=== PATIENT | female | born 1955 | race Caucasian/White ===

== ENCOUNTER → 2016-12-24 | Outpatient (CLI) | payer OTHER | LOC: FIMAGING 10:44 | PROVIDERS: ATTEND Nurse Practitioner | DX: Z12.31 Encounter for screening mammogram for malignant neoplasm of breast (principal) | CPT/HCPCS: G0202 ==

== ENCOUNTER → 2017-06-28 | Outpatient (CLI) | payer OTHER | LOC: CIMAGING 11:58 | PROVIDERS: ATTEND Nurse Practitioner | DX: R91.8 Other nonspecific abnormal finding of lung field (principal); Z87.891 Personal history of nicotine dependence | CPT/HCPCS: 71046-PO ==

== ENCOUNTER → 2017-07-11 | Outpatient (CLI) | payer OTHER ==
[~2017-07-11] MED LIST: IOPAMIDOL (ISOVUE-300) 100 ML BTL ONE
== END ==
LOC: FIMAGING 10:16
PROVIDERS: ATTEND Nurse Practitioner
DX: Z12.2 Encounter for screening for malignant neoplasm of respiratory organs (principal); Z87.891 Personal history of nicotine dependence
CPT/HCPCS: Q9967

== ENCOUNTER → 2017-08-22 | Outpatient (CLI) | payer OTHER | LOC: FIMAGING 11:09 | PROVIDERS: ATTEND Physical Medicine & Rehabilitation | DX: M50.81 Other cervical disc disorders, high cervical region (principal); M48.02 Spinal stenosis, cervical region; M51.84 Other intervertebral disc disorders, thoracic region ==

== ENCOUNTER 2017-12-24 11:05 | Emergency (ER) | payer OTHER ==
--- NOTE | 2017-12-24 12:30 | EDPHY ---
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 She is complaining of lateral malleolus pain. No fall from height. No paresthesia. Unable to bear weight. [ PHYSICAL EXAM (Prior to examination, patient consented to physical exam, hands were washed and my usual and customary physical exam procedures followed) 1) GENERAL: Well-developed, well-nourished, alert and oriented.. 2) HEAD: Normocephalic 3) HEENT: Pupils equal, round, reactive to light bilaterally. 4) LUNGS: Breathing comfortably. 5) MUSCULOSKELETAL: Tender to palpation lateral malleolus. proximal tibia and fibula nontender .5th MT nontender negative Nails test, compartments soft 6) SKIN: Intact 7) VASCULAR: DP,PT pulses and cap refill present and brisk DIFFERENTIAL DIAGNOSIS: in no particular order including but not limited to fracture, sprain, compartment syndrome * Procedure: Crutches indications for crutch use discussed with patient. Patient fitted for crutches by ER staff. Observed ambulating with crutches. I think the patient has the capacity to safely use crutches. Usual and customary crutch walking precautions provided Procedure: Splint A garth boot splint was applied by ER nursery technician. After application of the splint I returned and re-examined the patient. The splint was adequately immobilizing the joint and distal to the splint the patient's circulation and sensation were intact. Patient shows no signs of compartment syndrome. Was given orthopedic precautions. Smoking Status: Former smoker Constitutional: Initial Vital Signs Temperature (C) 36.6 C 12/24/17 11:09 Heart Rate 72 12/24/17 11:09 Respiratory Rate 18 12/24/17 11:09 O2 Sat (%) 92 12/24/17 11:09 O2 Delivery Mode Room Air Allergies/Adverse Reactions: Tetanus Toxoid,Fl *RETIRED-02/07/12 [Tetanus Toxoid,Fluid] Adverse Reaction ( Intermediate, Verified 12/24/17 11:08) Other-Enter Comments Home Medications: Medication Instructions Recorded Levothyroxine 02/02/14 Norvasc 02/02/14 Colchicine 12/24/17 Indomethacin 12/24/17 Lipitor 12/24/17 MDM/Departure - MDM Imaging Results: Imaging Impressions Ankle X-Ray 12/24/17 11:12 Impression: Nothing acute identified. Images reviewed by myself ED Course/Re-evaluation: No evidence of compartment syndrome. Soft compartments. Neurovascular intact. Recommend follow up with Orthopedics. I saw this patient independently based on established practice protocols. Care of patient under supervision of secondary supervising physician Dr Jovita Church. - Depart Disposition: Home, Routine, Self-Care Clinical Impression: Left ankle sprain Qualifiers: Encounter type: initial encounter Involved ligament of ankle: unspecified ligament Qualified Code(s): S93.402A - Sprain of unspecified ligament of left ankle, initial encounter Condition: Good Instructions: Ankle Sprain (ED) Additional Instructions: Return to the ER immediately if you experience discoloration, have worsening pain, numbness, tingling, or any other symptoms that concern you. If you received x-rays in the emergency department today, be advised, that ligamentous , tendon, muscular, and other non-bony injury cannot be fully ruled out. Try to keep your affected extremity elevated above the level of your chest, and keep cold packs on the affected area, for the next 48 hours. Adult Pain & Fever Control: We recommend Acetaminophen (Tylenol) and Ibuprofen (Motrin,Advil) for pain and fever control. When fever is high or pain severe, both drugs can be used at the same time, but at different intervals. Please note the time differences. Your dose is: Acetaminophen 650mg every 4 to 6 hours Ibuprofen 600mg every 6 hours with food OR Note: do not take Acetaminophen with Hydrocodone (Vicodin, Lortab) or Oycodone (Percocet). These medications also contain Acetaminophen. No more than 3000mg of Acetaminophen should be taken in 24 hours (for an adult). Referrals: Devin Dominguez MD [Medical Doctor] - 2-3 days, call for appt.
[2017-12-24 12:46] VITALS: BP 143/85
== END 2017-12-24 12:48 | disposition home or self-care (01) ==
DX: S93.402A Sprain of unspecified ligament of left ankle, initial encounter (principal); Z87.891 Personal history of nicotine dependence; X50.9XXA Other and unspecified overexertion or strenuous movements or postures, initial encounter; Y92.239 Unspecified place in hospital as the place of occurrence of the external cause; Y99.0 Civilian activity done for income or pay; Y93.89 Activity, other specified
CPT/HCPCS: L4386

== ENCOUNTER 2018-06-01 05:41 | Day surgery (SDC) | payer OTHER ==
[2018-06-01] MEDS ORDERED: LR 1,000 ML IV ONE (05:50)
[2018-06-01] MEDS ORDERED: LIDOCAINE 1% 2 ML INJ ID PRN (05:50)
[2018-06-01] MEDS ORDERED: LIDOCAINE 1% 300 MG/30 ML SDV ONE (06:41)
[2018-06-01] MEDS ORDERED: BUPIVACAINE 0.5% 30 ML SDV ONE (06:41)
[2018-06-01] MEDS ORDERED: ceFAZolin 2 GM/DEXTROSE 100 ML IV ONE (06:48)
--- NOTE | 2018-06-01 06:51 | SOAPPROG ---
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 MAIN OFFICE Provider DEVIN RODRIGUES M.D. Insurance Med Primary: ZANDRA Insurance # : [id number] Policy/Group # : [id number] Prescription: DSTPS - Member is eligible. details None recorded. Patient's Pharmacies [facility] #[id number] ([facility]): [address] [facility] [id number], Ph , Vitals None recorded. Allergies Allergies not reviewed (last reviewed 06/15/2017) TETANUS VACCINES AND TOXOID: Fever (Mild) Reviewed Medications amLODIPine 06/15/17 entered [facility] amLODIPine 5 mg tablet 04/03/18 filled [facility] atorvastatin 20 mg tablet 05/03/18 filled [facility] betamethasone acetate and sodium phos 6 mg/mL suspension for injection Take 0.7 mL by injection route. 04/06/18 administered Devin Rodrigues M.D. chlorhexidine gluconate 0.12 % mouthwash 05/04/18 filled [facility] cholecalciferol (vitamin D3) 1,000 unit capsule 06/15/17 entered [facility] cyclobenzaprine 10 mg tablet 08/15/17 filled [facility] dexamethasone 0.5 mg/5 mL oral elixir 05/04/18 filled [facility] diclofenac 1 % topical gel APPLY 2 GRAM TO THE AFFECTED AREA(S) BY TOPICAL ROUTE 4 TIMES PER DAY 05/29/18 prescribed Devin Rodrigues M.D. diclofenac sodium 75 mg tablet,delayed release 11/06/17 filled [facility] gabapentin 300 mg capsule 10/26/17 filled [facility] levothyroxine 06/15/17 entered [facility] Salced[facility] levothyroxine 50 mcg tablet 04/04/18 filled [facility] methylPREDNISolone 4 mg tablets in a dose pack 08/24/17 filled [facility] [place] 3-6-9 06/15/17 entered [facility] Slacedo sertraline 25 mg tablet 04/03/18 filled [facility] None recorded. Problems Reviewed Problems No known problems * Acquired trigger finger - Onset: 11/02/2017 Family History Family History not reviewed (last reviewed 06/15/2017) Mother - Arthritis - Diabetes mellitus - Hypertensive disorder Father - Heart disease - Hypertensive disorder Brother - Arthritis - Diabetes mellitus - Heart disease - Malignant neoplastic disease - Disorder of back Social History not reviewed (last reviewed 06/15/2017) Smoking Status: Former smoker Occupation: Registered nurses Employer: [employer] Alcohol intake: Occasional Alcohol-years of use: 30 Caffeine intake: Moderate Exercise level: Occasional Hand Dominance: Left Education: 2 Year College Live alone or with others?: alone Surgical History Surgical History not reviewed (last reviewed 06/15/2017) DIETITIAN CHIEF History (not configured) Obstetric History None recorded. Past Pregnancies None recorded. Past Medical History Past Medical History not reviewed (last reviewed 06/15/2017) Depression: Y Gout: Y Hypertension: Y Migraines: Y Thyroid Problems: Y Screening None recorded. HPI This is a very pleasant 62 year old LHD female with: -left ring > left small finger trigger finger - 06/15/17 -- left ring finger flexor sheath injection - 11/02/17 -- repeat left ring finger flexor sheath injection - 02/24/18 -- repeat left ring finger flexor sheath injection -- now with recurrence of symptoms - insidious onset of a right dorsoradial long finger MCPJ mass She presents today for repeat evaluation of her left ring finger due to recurrence of symptoms. ROS ROS as noted in the HPI Physical Exam Patient is a 62-year-old female. Bilateral finger examination Inspection/palpation: Right: 2mm x 3mm mass overlying the dorsoradial aspect of the right long finger MCPJ Left: TTP overlying the left ring A1 alberta Finger ROM Index MCP: 0-80 / 0-80 / 0-80 PIP: 0-105 / 0-105 / 0-105 DIP: 0-75 / 0-75 / 0-75 Long MCP: 0-90 / 0-90 / 0-90 PIP: 0-105 / 0-105 / 0-105 DIP: 0-75 / 0-75 / 0-75 Ring MCP: 0-95 / 0-95 / 0-95 PIP: 0-105 / 0-105 / 0-105 DIP: 0-75 / 0-75 / 0-75 Small MCP: 0-100 / 0-100 / 0-100 PIP: 0-105 / 0-105 / 0-105 DIP: 0-75 / 0-75 / 0-75 Finger motor and sensory Index FDS: + / + / + FDP: + / + / + EDC: + / + / + RDN: + / + / + UDN: + / + / + Long FDS: + / + / + FDP: + / + / + EDC: + / + / + RDN: + / + / + UDN: + / + / + Ring FDS: + / + / + FDP: + / + / + EDC: + / + / + RDN: + / + / + UDN: + / + / + Small FDS: + / + / + FDP: + / + / + EDC: + / + / + RDN: + / + / + UDN: + / + / + Trigger finger testing (R / L /Normal) Thumb: - / - / - Index: - / - / - Long: - / - / - Ring: - / + / - Small: - / - / - Dupuytrens cords (R / L / Normal) Thumb: - / - / - Index: - / - / - Long: - / - / - Ring: - / - / - Small: - / - / - Assessment / Plan This is a very pleasant 62 year old LHD female with: -left ring > left small finger trigger finger - 06/15/17 -- left ring finger flexor sheath injection - 11/02/17 -- repeat left ring finger flexor sheath injection - 02/24/18 -- repeat left ring finger flexor sheath injection -- now with recurrence of symptoms - insidious onset of a right long finger dorsoradial MCPJ mass -- s/s c/w a possible ganglion cyst For the left ring finger: - I have discussed with the patient the risks, benefits, alternatives and complications associated with both non-operative (specifically, observation, NSAIDs, PT/HEP, injection) and operative (specifically, left ring finger trigger finger release) forms of treatment - The patient fully understands the risks, benefits, alternatives, and complications associated with these forms of treatment and wishes to proceed with operative intervention as outlined above - She has signed the informed consent form for surgery and surgery will be scheduled for the near future. For the right long finger: - I have discussed with the patient the risks, benefits, alternatives and complications associated with both non-operative (specifically, observation, advanced imaging) and operative (specifically, right long finger dorsal MCPJ mass excisional biopsy) forms of treatment - The patient fully understands the risks, benefits, alternatives, and complications associated with these forms of treatment and wishes to continue observation - FU as above 1. Acquired trigger finger M65.342: Trigger finger, left ring finger * TRIGGER FINGER: CARE INSTRUCTIONS 2. Pain in finger of right hand M79.644: Pain in right finger(s) * XR, HAND Ordering provider to read?: Y Possibility of ?: N Provide films to patient: N Shielded?: N Side: RIGHT Views (X-RAY, HAND): PA, Lateral & Oblique Ordering provider to read?: Y, Possibility of ?: N, Provide films to patient: N, Shielded?: N, Side: RIGHT, Views (X-RAY, HAND): PA, Lateral & Oblique Right hand joint spaces are well-maintained, no evidence of bony abnormality. Return to Office * Devin Rodrigues M.D. for Post op 15 at MAIN OFFICE on 06/14/2018 at 10:30 AM Encounter Sign-Off Encounter signed-off by Devin Rodrigues M.D., 05/30/2018. 06/01/18 06:50 Objective: Vital Signs Temp Pulse Resp BP Pulse Ox 36.6 C 56 L 14 120/79 93 06/01/18 06:29 06/01/18 06:29 06/01/18 06:29 06/01/18 06:29 06/01/18 06:29 ICD10 Worksheet Patient Problems: Problems Problem Status Onset Trigger finger, left ring finger Acute - ICD10 Problem Qualifiers (1) Trigger finger, left ring finger
--- NOTE | 2018-06-01 06:52 | PDHPUP ---
History & Physical Update H&P update statement: This history and physical update is based on an assessment of the patient which was completed after admission or registration (within 24 hours), but prior to the surgery/procedure. H&P update: H&P reviewed & patient examined, no change in patient's condition since H&P completed
[2018-06-01] MEDS ORDERED: MIDAZOLAM 2 MG/2 ML VIAL IVP ONE (06:56)
--- NOTE | 2018-06-01 06:56 | PDANEPAE ---
ANE History of Present Illness Left ring finger, here for trigger finger release ANE Past Medical History - Cardiovascular History Hx Hypertension: Yes Hx Arrhythmias: No Hx Chest Pain: No Hx Coronary Artery / Peripheral Vascular Disease: No Hx CHF / Valvular Disease: No Hx Palpitations: No - Pulmonary History Hx COPD: No Hx Asthma/Reactive Airway Disease: No Hx Recent Upper Respiratory Infection: No Hx Oxygen in Use at Home: No Hx Sleep Apnea: No Sleep Apnea Screening Result - Last Documented: Positive Pulmonary History Comment: DEYSI triggers - Neurologic History Hx Cerebrovascular Accident: No Hx Seizures: No Hx Dementia: No - Endocrine History Hx Diabetes: No - Renal History Hx Renal Disorders: No Renal History Comment: hx kidney stone lithotripsy 20 yrs ago - Liver History Hx Hepatic Disorders: No - Neurological & Psychiatric Hx Hx Neurological and Psychiatric Disorders: Yes Neurological / Psychiatric History Comment: minor depression/anxiety - Cancer History Hx Cancer: No - Congenital Disorder History Hx Congenital Disorders: No - GI History Hx Gastrointestinal Disorders: Yes Gastrointestinal History Comment: nausea, something stuck at base of esophagus - Other Health History Other Health History: crown. [place] - Chronic Pain History Chronic Pain: No - Surgical History Prior Surgeries: none in last 5 yrs ANE Review of Systems Review of Systems: - Exercise capacity METS (RN): 4 METS ANE Patient History - Allergies Allergies/Adverse Reactions: Tetanus Toxoid,Fl *RETIRED-02/07/12 [Tetanus Toxoid,Fluid] Allergy (Intermediate , Verified 06/01/18 05:57) Other-Enter Comments - Home Medications Home Medications: Levothyroxine 02/02/14 [Last Taken 05/31/18 09:30] Norvasc 02/02/14 [Last Taken 05/31/18 14:00] Colchicine 12/24/17 [Last Taken Unknown] Indomethacin 12/24/17 [Last Taken 1 Year Ago ~06/01/17] Lipitor 12/24/17 [Last Taken 05/31/18 20:30] Sertraline HCl 05/25/18 [Last Taken 05/31/18 14:00] - NPO status NPO Since - Liquids (Date): 05/31/18 NPO Since - Liquids (Time): 23:45 NPO Since - Solids (Date): 05/31/18 NPO Since - Solids (Time): 20:00 - Smoking Hx Smoking Status: Former smoker - Family Anes Hx Family Hx Anesthesia Complications: none ANE Labs/Vital Signs - Vital Signs Blood Pressure: 120/79 Heart Rate: 56 Respiratory Rate: 14 O2 Sat (%): 93 Height: 162.56 cm Weight: 90.718 kg ANE Physical Exam - Airway Neck exam: FROM Mallampati Score: Class 2 Mouth exam: normal dental/mouth exam - Pulmonary Pulmonary: no respiratory distress, no rales or rhonchi - Cardiovascular Cardiovascular: regular rate and rhythym, no murmur, rub, or gallop - ASA Status ASA Status: II ANE Anesthesia Plan Anesthesia Plan: GA with mask Total IV Anesthesia: Yes
[2018-06-01] MEDS ORDERED: fentaNYL 100 MCG/2 ML INJ ONE (06:59)
[2018-06-01] MEDS ORDERED: PROPOFOL/EMULSION 500 MG/50 ML BOTTLE IV ONE (06:59)
[2018-06-01] MEDS ORDERED: DEXAMETHASONE 4 MG/ML VIAL IVP PRN (07:28)
[2018-06-01] MEDS ORDERED: ACETAMINOPHEN 500 MG TAB PO PRN (07:28)
[2018-06-01] MEDS ORDERED: MEPERIDINE 25 MG/0.5 ML AMP IVP PRN (07:28)
[2018-06-01] MEDS ORDERED: NALOXONE HCL 0.4 MG/ML INJ IVP PRN (07:28)
[2018-06-01] MEDS ORDERED: ONDANSETRON 4 MG/2 ML VIAL IVP PRN (07:28)
[2018-06-01] MEDS ORDERED: oxyCODONE IR 5 MG TAB PO PRN (07:28)
[2018-06-01] MEDS ORDERED: fentaNYL 100 MCG/2 ML INJ IVP PRN (07:28)
[2018-06-01 09:28] VITALS: BP 135/82
[2018-06-01] MEDS ORDERED: PROPOFOL 200 MG/20 ML VIAL ONE (09:28)
[2018-06-01] MEDS ORDERED: ACETAMINOPHEN 500 MG TAB ONE (09:34)
--- NOTE | 2018-06-01 09:55 | POSTANESTH ---
Post Anesthetic Evaluation Cardiovascular Status: Normal, Stable Respiratory Status: Normal, Stable, Similar to Pre-op Cond. Level of Consciousness/Mental Status: Can Participate in Eval, Alert and Oriented Pain Control: Adequate, Prn Tx Ordered Nausea/Vomiting Control: Adequate, Prn Tx Ordered Complications Possibly Related to Anesthesia: None Noted
--- NOTE | 2018-06-03 18:29 | GOP ---
DATE OF OPERATION: 06/01/2018 SURGEON: Devin Vu MD [employer] RAFTING GUIDE: Ellen Cano PA-C PREOPERATIVE DIAGNOSIS: Left ring finger trigger finger. POSTOPERATIVE DIAGNOSIS: Left ring finger trigger finger. PROCEDURE PERFORMED: Left ring finger trigger finger release. FINDINGS: ESTIMATED BLOOD LOSS: 0.2 cc. DESCRIPTION OF PROCEDURE: This is a very pleasant 62-year-old female who underwent a left ring finge r trigger finger release. COMPLICATIONS: None. IMPLANTS: None. TOURNIQUET TIME: 11 minutes at 250 mmHg. /[id number]/MODL
== END 2018-06-01 09:48 | disposition home or self-care (01) ==
LOC: FSGY 05:41
PROVIDERS: ATTEND Orthopaedic Surgery Hand Surgery
PROC: 0LN80ZZ Release Left Hand Tendon, Open Approach (ICD-10-PCS; principal; 2018-06-01 07:15)
DX: M65.342 Trigger finger, left ring finger (principal); F32.9 Major depressive disorder, single episode, unspecified; I10 Essential (primary) hypertension; M10.9 Gout, unspecified; G43.909 Migraine, unspecified, not intractable, without status migrainosus; E07.9 Disorder of thyroid, unspecified
CPT/HCPCS: J0690; J2250; J2704; J3010

== ENCOUNTER 2018-10-14 16:15 | Emergency (ER) | payer OTHER ==
[2018-10-14] MEDS ORDERED: NS 1,000 ML IV ONE (16:57)
[2018-10-14] MEDS ORDERED: fentaNYL 100 MCG/2 ML INJ IVP ONE (16:57)
[2018-10-14] MEDS ORDERED: ONDANSETRON 4 MG/2 ML VIAL IVP ONE (16:57)
--- NOTE | 2018-10-14 16:57 | EDPHY ---
H & P Time Seen by Provider: 10/14/18 16:26 HPI/ROS: CHIEF COMPLAINT: Left flank pain HISTORY OF PRESENT ILLNESS: The patient is a 62-year-old female who presents emergency department left flank pain. 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 She took 600 mg of ibuprofen. Her symptoms worsened. She had an episode of nausea with no vomiting. She subsequently had a bowel movement. Her pain has persisted. She states that slightly improved when she is laying down on the bed. She has had a previous kidney stone in approximately 1999. She states her previous no was 1.5 cm and required lithotripsy. She denies any fevers or chills. No dysuria frequency. No recent trauma. No chest pain or shortness of breath. No abdominal pain. REVIEW OF SYSTEMS: 10 systems were reveiwed and are negative with the exception of the elements mentioned in the history of present illness. Past Medical/Surgical History: Previous kidney stone Smoking Status: Former smoker Physical Exam: Vitals noted GENERAL: Well-appearing, in no acute distress, alert. HEENT: Eyes normal to inspection, normal pharynx, no signs of dehydration. NECK: Normal, supple. RESPIRATORY: Clear to auscultation bilaterally, no rales, rhonchi or wheezing. CVS: Regular rate and rhythm, no rubs, murmurs, or gallops. ABDOMEN: Soft, nontender, nondistended, no organomegaly. BACK: Normal to inspection, no CVA tenderness. SKIN: Normal color, no rash, warm, dry. No pallor. EXTREMITIES: No pedal edema, no calf tenderness, no Homans sign or cords, no joint swelling. NEURO/PSYCH: Alert and oriented, normal mood and affect, normal motor sensory exam. Constitutional: Initial Vital Signs Temperature (C) 36.7 C 10/14/18 16:21 Heart Rate 72 10/14/18 16:21 Respiratory Rate 26 H 10/14/18 16:21 Blood Pressure 165/98 H 10/14/18 16:21 O2 Sat (%) 99 10/14/18 16:21 O2 Delivery Mode Room Air Allergies/Adverse Reactions: Tetanus Toxoid,Fl *RETIRED-02/07/12 [Tetanus Toxoid,Fluid] Allergy (Intermediate , Verified 06/01/18 05:57) Other-Enter Comments Home Medications: Medication Instructions Recorded Levothyroxine 02/02/14 Norvasc 02/02/14 Colchicine 12/24/17 Indomethacin 12/24/17 Lipitor 12/24/17 Sertraline HCl 05/25/18 Ibuprofen 600 mg PO Q6 #15 tablet 10/14/18 Metformin HCl 10/14/18 Ondansetron Odt [Zofran Odt 4 mg 4 mg PO Q4PRN PRN #7 tab 10/14/18 (*)] Tamsulosin HCl [Flomax] 0.4 mg PO DAILY #4 cap 10/14/18 oxyCODONE/APAP 5/325 [Percocet 1 - 2 tab PO Q4PRN PRN #11 tab 10/14/18 5/325 (*)] Medical Decision Making - Diagnostics Imaging Results: Imaging Impressions Abdomen/Pelvis CT 10/14/18 16:57 Impression: 1. 6-mm stone in the proximal left ureter with mild obstructive uropathy. 2. Punctate left renal stone. 3. Borderline enlarged fatty liver. 4. Additional findings, as above. Findings discussed with Rae Cox MD on October 14, 2018 at 5:29 p.m. Attention: This CT examination is specifically designed to evaluate patients who are clinically suspected of having acute obstructive uropathy. This examination does not use radiographic contrast and provides only a limited evaluation of the abdomen, pelvis, and retroperitoneum. If there is further clinical suspicion for pathological conditions other than obstructive uropathy, a complete CT evaluation of the abdomen and pelvis utilizing intravenous and enteric contrast should be considered. ED Course/Re-evaluation: The in the emergency department I discussed possible etiologies with the patient. I answered all her questions. IV was placed. Laboratory studies were obtained. The patient was given fentanyl 100 mcg IV and Zofran 4 mg IV. She took ibuprofen previously. The CT scan was ordered. Patient's white count is elevated at 12.3. Chemistry panel is notable for a low potassium of 3.2. Creatinine is normal. UA shows positive red cells. CT of the abdomen pelvis: Please refer the dictated report by Dr. Pickard. The patient has a left ureteral stone measuring 6 mm. I discussed the results with the patient. I answered all her questions. Patient states she is feeling much better. Her abdominal exam is soft, nontender nondistended. She feels comfortable being discharged home. She understands risks of discharge versus admission. She was given Flomax 0.4 mg orally. The patient was given warnings prior to leaving. She will return with worsening symptoms. She was given a prescription for Percocet, Zofran, ibuprofen and Flomax. Differential Diagnosis: My differential includes but is not limited to kidney stone, urinary tract infection, pyelonephritis, pneumothorax, small-bowel obstruction, perforation - Data Points Laboratory Results: Laboratory Results 10/14/18 16:30 10/14/18 16:30 10/14/18 10/14/18 10/14/18 17:00 16:30 16:30 WBC 12.36 10^3/uL H 10^3/uL (3.80-9.50) RBC 5.07 10^6/uL 10^6/uL (4.18-5.33) Hgb 15.0 g/dL g/dL (12.6-16.3) Hct 42.2 % % (38.0-47.0) MCV 83.2 fL fL (81.5-99.8) MCH 29.6 pg pg (27.9-34.1) MCHC 35.5 g/dL g/dL (32.4-36.7) RDW 12.9 % % (11.5-15.2) Plt Count 291 10^3/uL 10^3/uL (150-400) MPV 10.5 fL fL (8.7-11.7) Neut % (Auto) 45.5 % % (39.3-74.2) Lymph % (Auto) 43.1 % % (15.0-45.0) [place] % (Auto) 7.9 % % (4.5-13.0) Eos % (Auto) 2.7 % % (0.6-7.6) Baso % (Auto) 0.6 % % (0.3-1.7) Nucleat RBC Rel Count 0.0 % % (0.0-0.2) Absolute Neuts (auto) 5.62 10^3/uL 10^3/uL (1.70-6.50) Absolute Lymphs (auto) 5.33 10^3/uL H 10^3/uL (1.00-3.00) Absolute Monos (auto) 0.98 10^3/uL H 10^3/uL (0.30-0.80) Absolute Eos (auto) 0.33 10^3/uL 10^3/uL (0.03-0.40) Absolute Basos (auto) 0.07 10^3/uL 10^3/uL (0.02-0.10) Absolute Nucleated RBC 0.00 10^3/uL 10^3/uL (0-0.01) Immature Gran % 0.2 % % (0.0-1.1) Immature Gran # 0.02 10^3/uL 10^3/uL (0.00-0.10) RBC/WBC/PLT Morphology TNP Platelet Estimate TNP Sodium 140 mEq/L mEq/L (135-145) Potassium 3.2 mEq/L L mEq/L (3.5-5.2) Chloride 106 mEq/L mEq/L (97-110) Carbon Dioxide 21 mEq/l L mEq/l (22-31) Anion Gap 13 mEq/L mEq/L (6-14) BUN 16 mg/dL mg/dL (7-23) Creatinine 0.9 mg/dL mg/dL (0.6-1.0) Estimated GFR > 60 Glucose 155 mg/dL H mg/dL (70-100) Calcium 10.3 mg/dL mg/dL (8.5-10.4) Urine Color YELLOW Urine Appearance HAZY Urine pH 7.0 (5.0-7.5) Ur Specific [place] 1.011 (1.002-1.030) Urine Protein NEGATIVE (NEGATIVE) Urine Ketones TRACE H (NEGATIVE) Urine Blood 2+ H (NEGATIVE) Urine Nitrate NEGATIVE (NEGATIVE) Urine Bilirubin NEGATIVE (NEGATIVE) Urine Urobilinogen NEGATIVE EU EU (0.2-1.0) Ur Leukocyte Esterase NEGATIVE (NEGATIVE) Urine RBC 50-182 /hpf H /hpf (0-3) Urine WBC 0-1 /hpf /hpf (0-3) Ur Epithelial Cells TRACE /lpf /lpf (NONE-1+) Amorphous Sediment PRESENT /hpf /hpf (NONE-1+) Urine Mucus 1+ /lpf /lpf (NONE-1+) Urine Glucose NEGATIVE (NEGATIVE) Medications Given: Discontinued Medications Fentanyl (Sublimaze) 100 mcg IVP EDNOW ONE Stop: 05/18/19 16:58 Last Admin: 10/14/18 17:15 Dose: 100 mcg Sodium Chloride (Ns) 1,000 mls @ 0 mls/hr IV EDNOW ONE; Wide Open PRN Reason: Protocol Stop: 10/14/18 16:58 Last Admin: 10/14/18 17:14 Dose: 1,000 mls Ondansetron HCl (Zofran) 4 mg IVP EDNOW ONE Stop: 10/14/18 16:58 Last Admin: 10/14/18 17:15 Dose: 4 mg Departure - Departure Disposition: Home, Routine, Self-Care Clinical Impression: Flank pain, Ureteral stone Condition: Good Instructions: Kidney Stones (ED) Additional Instructions: Return with increasing pain, inability urinate, fever, chills or any other concerns. Referrals: Bi Bonilla MD [Medical Doctor] - 2-3 days without fail Prescriptions: Ibuprofen 600 mg PO Q6 #15 tablet Ondansetron Odt [Zofran Odt 4 mg (*)] 4 mg PO Q4PRN PRN #7 tab PRN Reason: For Nausea & Vomiting oxyCODONE/APAP 5/325 [Percocet 5/325 (*)] 1 - 2 tab PO Q4PRN PRN #11 tab PRN Reason: For Moderate To Severe Pain Tamsulosin HCl [Flomax] 0.4 mg PO DAILY #4 cap
[2018-10-14 17:21] LABS: PLATELET COUNT 291 10^3/uL (150-400)
[2018-10-14] MEDS ORDERED: POTASSIUM CL 20 MEQ/15 ML UDCUP PO ONE (18:11)
[2018-10-14] MEDS ORDERED: TAMSULOSIN HCL 0.4 MG CAP PO ONE (18:12)
[2018-10-14 18:26] VITALS: BP 155/70
== END 2018-10-14 18:40 | disposition home or self-care (01) ==
DX: N20.2 Calculus of kidney with calculus of ureter (principal); N13.9 Obstructive and reflux uropathy, unspecified; K76.0 Fatty (change of) liver, not elsewhere classified; E86.9 Volume depletion, unspecified; Z87.891 Personal history of nicotine dependence
CPT/HCPCS: 96374; J2405; J3010

== ENCOUNTER 2018-10-19 12:24 | Day surgery (SDC) | payer OTHER ==
--- NOTE | 2018-10-18 18:27 | GHP ---
[f rep st] PREOP HISTORY AND PHYSICAL ADMISSION DIAGNOSIS: Left proximal ureteral calculus. 62-year-old lady who had a ureteral calculus and pain on the left side. CAT scan revealed a 7 mm stone, and her associated features related to this are bloating and nausea. She is admitted as an outpatient for the above procedure. PAST HISTORY: Positive for depression, diabetes, hypertension, hypercholesterolemia. ALLERGIES: Tetanus toxoid and lisinopril. MEDICATIONS: Include oxycodone, amlodipine, atorvastatin, levothyroxine, sertraline, metformin, Norvasc. PAST SURGICAL HISTORY: ACL lithotripsy and trigger finger release. FAMILY HISTORY: Father and brother had kidney stones. No malignancy. SOCIAL HISTORY: Former smoker. Rare alcohol consumption. She is . REVIEW OF SYSTEMS: Negative cardiac, respiratory, endocrine. PHYSICAL EXAM: VITAL SIGNS: In the office, she had a blood pressure 120/82, pulse 76 and regular, respirations 16, O2 sat on room air 95%. GENERAL: Oriented x3. HEAD, EARS, EYES, NOSE, AND THROAT: Normal. ABDOMEN: Normal, with no rebound or guarding. LOWER EXTREMITIES: Normal. At the present time, she is admitted for left ureteroscopy and stone retrieval. /[id number]/MODL MTDD
--- NOTE | 2018-10-19 10:42 | POSTOPPROG ---
Post Op Note Date of Operation: 10/19/18 (dictated) Surgeon: Sven Alexander Anesthesiologist: Omid Anesthesia: GET(General Endotracheal) Pre-op Diagnosis: left ureterolitihiasis Procedure: Ureteroscopy, stent, fluoroscopy, renal stone rx Inf/Abcess present in the surg proc area at time of surgery?: No EBL: Minimal Drains: Other (stent)
[2018-10-19] MEDS ORDERED: LIDOCAINE 2% JELLY 20 ML (UROJECT) ONE ×2 (12:43→12:49)
[2018-10-19] MEDS ORDERED: IOPAMIDOL (ISOVUE-M 300) 15 ML VIAL ONE ×2 (12:44→12:51)
[2018-10-19] MEDS ORDERED: ceFAZolin 2 GM/DEXTROSE 100 ML IV ONE (12:52)
[2018-10-19] MEDS ORDERED: LR 1,000 ML IV ONE (12:57)
--- NOTE | 2018-10-19 13:19 | PDANEPAE ---
ANE History of Present Illness L ureteroscopy for stone plus stent placement ANE Past Medical History - Cardiovascular History Hx Hypertension: Yes Hx Arrhythmias: No Hx Chest Pain: No Hx Coronary Artery / Peripheral Vascular Disease: No Hx CHF / Valvular Disease: No Hx Palpitations: No - Pulmonary History Hx COPD: No Hx Asthma/Reactive Airway Disease: No Hx Recent Upper Respiratory Infection: No Hx Oxygen in Use at Home: No Hx Sleep Apnea: No Sleep Apnea Screening Result - Last Documented: Positive Pulmonary History Comment: DEYSI triggers - Neurologic History Hx Cerebrovascular Accident: No Hx Seizures: No Hx Dementia: No - Endocrine History Hx Diabetes: Yes Endocrine History Comment: metformin - Renal History Hx Renal Disorders: No Renal History Comment: hx kidney stone lithotripsy 20 yrs ago - Liver History Hx Hepatic Disorders: No - Neurological & Psychiatric Hx Hx Neurological and Psychiatric Disorders: Yes Neurological / Psychiatric History Comment: minor depression/anxiety. 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 small hiatal hernia - Other Health History Other Health History: crown. menap[place] - Chronic Pain History Chronic Pain: No - Surgical History Prior Surgeries: none in last 5 yrs. trigger finger release 2019 ANE Review of Systems Review of Systems: - Exercise capacity METS (RN): 4 METS ANE Patient History - Allergies Allergies/Adverse Reactions: Tetanus Toxoid,Fl *RETIRED-02/07/12 [Tetanus Toxoid,Fluid] Allergy (Intermediate , Verified 10/18/18 17:58) Other-Enter Comments - Home Medications Home medications: home medication list seen and reviewed Home Medications: Levothyroxine 02/02/14 [Last Taken 10/19/18] Norvasc 02/02/14 [Last Taken 10/19/18] Colchicine 12/24/17 [Last Taken Unknown] Indomethacin 12/24/17 [Last Taken 10/19/17] Lipitor 12/24/17 [Last Taken 10/18/18] Sertraline HCl 05/25/18 [Last Taken 10/18/18] Metformin HCl 10/14/18 [Last Taken 10/18/18] - NPO status NPO Status: no food or drink >8 hours - Anes Hx Anes Hx: no prior problems - Smoking Hx Smoking Status: Former smoker - Alcohol Use Alcohol Use: None - Family Anes Hx Family Anes Hx: none Family Hx Anesthesia Complications: none ANE Labs/Vital Signs - Vital Signs Height: 160.02 cm Weight: 92.986 kg ANE Physical Exam - Airway Neck exam: FROM Mallampati Score: Class 2 Mouth exam: normal dental/mouth exam - Pulmonary Pulmonary: no respiratory distress - Cardiovascular Cardiovascular: regular rate and rhythym - ASA Status ASA Status: III ANE Anesthesia Plan Anesthesia Plan: general endotracheal anesthesia
[2018-10-19] MEDS ORDERED: PROPOFOL/EMULSION 500 MG/50 ML BOTTLE IV ONE (14:50)
[2018-10-19] MEDS ORDERED: REMIFENTANIL HCL 1 MG VIAL ONE (14:50)
[2018-10-19] MEDS ORDERED: fentaNYL 100 MCG/2 ML INJ ONE ×2 (14:50→16:22)
[2018-10-19] MEDS ORDERED: LIDOCAINE HCL 160 MG/4 ML LTA KIT TP ONE (14:54)
[2018-10-19] MEDS ORDERED: LIDOCAINE 2% 100 MG/5 ML SYR ONE (14:54)
[2018-10-19] MEDS ORDERED: ONDANSETRON 4 MG/2 ML VIAL ONE (15:03)
[2018-10-19] MEDS ORDERED: DEXAMETHASONE 4 MG/ML VIAL ONE ×2 (15:03)
[2018-10-19] MEDS ORDERED: DEXAMETHASONE 4 MG/ML VIAL IVP PRN (15:54)
[2018-10-19] MEDS ORDERED: ACETAMINOPHEN 500 MG TAB PO PRN (15:54)
[2018-10-19] MEDS ORDERED: oxyCODONE IR 5 MG TAB PO PRN (15:54)
[2018-10-19] MEDS ORDERED: LR 500 ML IV PRN (15:54)
[2018-10-19] MEDS ORDERED: KETOROLAC 30 MG/1 ML SDV ONE (15:54)
[2018-10-19] MEDS ORDERED: PHENYLEPHRINE HCL 100 MCG/ML SYR IVP PRN (15:54)
[2018-10-19] MEDS ORDERED: PROMETHAZINE HCL 25 MG/ML INJ IVP PRN (15:54)
[2018-10-19] MEDS ORDERED: ONDANSETRON 4 MG/2 ML VIAL IVP PRN (15:54)
[2018-10-19] MEDS ORDERED: ALBUTEROL 3 ML DEYVIAL IH PRN (15:54)
[2018-10-19] MEDS ORDERED: MEPERIDINE 25 MG/0.5 ML AMP IVP PRN (15:54)
[2018-10-19] MEDS ORDERED: METOCLOPRAMIDE 10 MG/2 ML VIAL IVP PRN (15:54)
[2018-10-19] MEDS ORDERED: LABETALOL HCL 5 MG/ML 20 ML MDV IVP PRN (15:54)
[2018-10-19] MEDS ORDERED: HYDROCODONE/APAP 5/325 TAB PO PRN (15:54)
[2018-10-19] MEDS ORDERED: fentaNYL 100 MCG/2 ML INJ IVP PRN (15:54)
[2018-10-19] MEDS ORDERED: NALOXONE HCL 0.4 MG/ML INJ IVP PRN (15:54)
[2018-10-19] MEDS ORDERED: KETOROLAC 30 MG/1 ML SDV IVP ONE (15:55)
[2018-10-19] MEDS ORDERED: MIDAZOLAM 2 MG/2 ML VIAL IVP ONE (16:23)
[2018-10-19] MEDS ORDERED: CEPACOL LOZENGE PO ONE (16:30)
[2018-10-19] MEDS ORDERED: oxyCODONE IR 5 MG TAB ONE (16:45)
--- NOTE | 2018-10-19 17:05 | GOP ---
[f rep st] OPERATIVE REPORT DATE OF OPERATION: 10/19/2018 SURGEON: Sven Alexander MD ANESTHESIA: General. ANESTHESIOLOGIST: Dr. Anne. PREOPERATIVE DIAGNOSIS: Ureteral calculus with hydronephrosis. POSTOPERATIVE DIAGNOSIS: Ureterolithiasis with hydronephrosis and renal calculi with Channing plaques. PROCEDURE PERFORMED: Cystoscopy, retrograde ureteral pyelogram with fluoroscopy and placement of ureteral access sheath, ureteroscopy with holmium laser lithotripsy of the ureteral stone and then visualization and fragmentation of 3 calyceal stones that were compatible with Channing plaques, and placement of a stent under fluoroscopic control. FINDINGS: ureteral calculus, hydronephrosis, renal calculi / Randalls plaque DESCRIPTION OF PROCEDURE: The lady underwent general anesthesia and was prepped and draped in normal sterile fashion. After undergoing anesthesia and time-out, appropriate urethra, normal bladder. Had no tumor, stones, foreign bodies or diverticula. The left ureteral orifice cannulated. Benedicta catheter retrograde revealed that she had a proximal stone and had some faint calcification in the kidney. At that point, I was able to pass a guidewire beyond the stone under fluoroscopic control. Then, the ureteral access sheath was passed up to just below the stone, which was impacted. I could eventually fragment the stone. It appeared to have a calcium matrix in the middle, but had uric acid calculus along the edges, and then was able to go up into the kidney and there were 3 calices that had papilla with Channing plaques and those were fragmented. At the end of the procedure, there was no bleeding. I elected not to try to drag any fragments out since they were all dusted, and inspection of the ureter on the way out revealed there was only inflammation at the site of the stone with no perforation of the ureter, and then a 4.5 multi- length ureteral stent was placed. It curled in the renal pelvis, curled in the bladder. Uro-Jet placed in the urethra after emptying her bladder. She will be discharged home. We talked preop about maybe staying the night, but the procedure went well and I think she should be able to be discharged home and follow up with me in the office in approximately 10 days for stent removal. /[id number]/MODL MTDD
--- NOTE | 2018-10-19 17:21 | POSTANESTH ---
Post Anesthetic Evaluation Cardiovascular Status: Normal, Stable Respiratory Status: Normal, Stable, Similar to Pre-op Cond. Level of Consciousness/Mental Status: Can Participate in Eval, Mildly Sleepy, Arousable Pain Control: Adequate, Prn Tx Ordered Nausea/Vomiting Control: Adequate, Prn Tx Ordered Complications Possibly Related to Anesthesia: None Noted
[2018-10-19 18:00] VITALS: BP 132/77
== END 2018-10-19 18:20 | disposition home or self-care (01) ==
LOC: FSGY 12:24
PROVIDERS: ATTEND Specialist
DX: N13.2 Hydronephrosis with renal and ureteral calculous obstruction (principal); I10 Essential (primary) hypertension; E78.5 Hyperlipidemia, unspecified; F32.9 Major depressive disorder, single episode, unspecified
CPT/HCPCS: 52356; 76000; C1758; C1769; C1894; C2625; J0690; J1100; J1885; J2001; J2405; J2704; J3010; Q9967